=== PATIENT | female | born 1990 | race Caucasian/White ===

== ENCOUNTER 2016-09-30 12:34 | Day surgery (SDC) | payer BC ==
--- NOTE | ~2016-09-30 | OP ---
Record Of Operation [facility] [address] [place]. [address] NAME: JAIME AVENDAÑO : 86 STATUS : REG [facility]#: [id number] AGE: 25 ADM/REG DATE : 09/30/16 MR#: [id number] REPORT SERV DATE: 09/30/16 DICTATED BY: MARY LERNER DATE: 09/30/16 REPORT STATUS : Draft TRANSCRIBED BY: ORIANA DATE: 09/30/16 DATE OF PROCEDURE: 09/30/2016 SURGEON: Mary Lerner M.D. TITLE OF OPERATION: Cystourethroscopy, fulguration of Hunner's ulcers, and bladder hydrodistention. PREOPERATIVE DIAGNOSIS: Interstitial cystitis. POSTOPERATIVE DIAGNOSIS: Interstitial cystitis. INDICATIONS: Ms. Avendaño is a 25-year-old female, with a history of chronic interstitial cystitis. She has failed multiple conservative medications including conservative management, medications, and bladder installations. She has had success with hydrodistention in the past. She is here for repeat hydrodistention. ANESTHESIA: General. COMPLICATIONS: None. IMPLANTS: None. SPECIMENS: None. NARRATIVE: The patient was brought to the operating room, identified by her wristband. General anesthesia was induced and Ancef was given for preoperative antibiotics. She was placed in dorsal lithotomy position, prepped and draped in sterile fashion. A 22-Surinamese cystoscope was placed, it was placed into her urethra and into her bladder. The bladder was inspected and found to be free of abnormalities. The bladder was filled with glycine to a pressure of 70 mmHg. The bladder was inspected. There was trabeculations and some glomerulations within the bladder itself. The hydrodistention was held for approximately three minutes, it was drained, bladder capacity was approximately 700 mL. There was a mucosal hemorrhage with this maneuver. The bladder was then refilled to pressure of 70 mmHg, similar findings were observed, pressure was held for five minutes. The bladder was drained. The capacity was approximately 700 mL. Some areas concerning for glomerulations were burned with Bovie electrocautery. There were approximately five of these throughout the bladder. The bladder was drained. The patient was awoken from anesthesia and transferred to recovery room in stable condition. I will see her back in two or three weeks. MIKE/ORIANA Mary Diaz Record Of Operation [facility] [address] [place]. [address] NAME: JAIME AVENDAÑO : 86 STATUS : REG [facility] PAT#: [id number] AGE: 25 ADM/REG DATE : 09/30/16 MR#: [id number] REPORT SERV DATE: 09/30/16 DICTATED BY: MARY LERNER DATE: 09/30/16 REPORT STATUS : Draft TRANSCRIBED BY: MODL DATE: 09/30/16 MD Eduarda / [id number] CC: Mary Lerner MD
[~2016-09-30 12:34] MED LIST: ALOE VERA5000 MG PO; UROGESIC BLUE PO
[2016-09-30 13:07] LABS: ASCORBIC ACID (UR NOT ORDER) NEG (NEG); BILIRUBIN, URINE NEGATIVE (NEG); KETONE, URINE NEGATIVE (NEG); LEUKOCYTE ESTERASE(NOT OR TRACE (NEG); WBC (NOT ORDERED) (RFLEX) 8 (0-5)
== END 2016-09-30 17:48 | disposition home or self-care (01) ==
LOC: SDC 12:34
PROVIDERS: Specialist; Urology
PROC: 0T7B8ZZ Dilation of Bladder, Via Natural or Artificial Opening Endoscopic (ICD-10-PCS; 2016-09-30)
PROC: 0T5B8ZZ Destruction of Bladder, Via Natural or Artificial Opening Endoscopic (ICD-10-PCS; principal; 2016-09-30 14:00)
DX: N30.10 Interstitial cystitis (chronic) without hematuria (principal); G43.909 Migraine, unspecified, not intractable, without status migrainosus; Z88.5 Allergy status to narcotic agent; Z88.8 Allergy status to other drugs, medicaments and biological substances; Z79.899 Other long term (current) drug therapy; Z98.890 Other specified postprocedural states
CPT/HCPCS: 81001; 84703; A9270-GY; J0690; J2250; J2405; J3010